=== PATIENT | female | born 1950 | race Two or more races ===

== ENCOUNTER 2024-12-31 22:25 | Emergency (ER) | payer OTHER ==
[~2024-12-31] VITALS: Ht 175.3 cm; Wt 91.6 kg
[2024-12-31] MEDS ORDERED: LOSARTAN POTASS50 MG (22:34)
[2024-12-31] MEDS ORDERED: JANUMET 50-5001 EACH (22:34)
[2024-12-31] MEDS ORDERED: LIPITOR40 M1 (22:34)
[2024-12-31] MEDS ORDERED: MECLIZINE HCL 25 MG TABLET PO ONE (22:45)
[2024-12-31] MEDS ORDERED: ONDANSETRON HCL 2 MG/ML VIAL IV ONE (22:45)
[2024-12-31 23:30] LABS: BASO % 0.3 % (0.1-1.2); EOS # 0.04 (0.04-0.54); EOS % 0.4 % (0.7-7.0); HEMATOCRIT 42.2 % (34.1-44.9); HEMOGLOBIN 14.2 g/dL (11.2-15.7); LYMPH # 1.91 (1.18-3.74); MEAN CORPUSCULAR HEMOGLOBIN 29.8 pg (25.6-32.2); MONO # 0.61 (0.24-0.82); MONO % 6.1 % (4.7-12.5); NEUT # 7.45 (1.56-6.13); PLATELET COUNT 244 K/uL (163-369); RED BLOOD COUNT 4.77 M/uL (3.93-5.22)
[2024-12-31 23:42] LABS: ALBUMIN 4.1 gm/dL (3.4-5.0); BILIRUBIN TOTAL 0.77 mg/dL (0.3-1.2); CALCIUM 9.9 mg/dL (8.5-10.1); CREATININE SERUM 0.64 mg/dL (0.55-1.02); GFR 90.96; GLOBULINA 3.5 G/DL (2.4-3.5); POTASSIUM 3.81 mEq/L (3.5-5.1); TOTAL PROTEIN 7.6 gm/dL (6.4-8.2)
[2025-01-01] MEDS ORDERED: hydrOXYzine PAMOATE 25 MG CAPSULE PO STA (00:25)
[2025-01-01] MEDS ORDERED: hydrOXYzine PAMOATE 25 MG CAPSULE PO ONE (00:35)
== END 2025-01-01 01:05 | disposition home or self-care (01) ==
LOC: ER 22:25
PROVIDERS: General Practice
DX: H81.10 Benign paroxysmal vertigo, unspecified ear (principal); I10 Essential (primary) hypertension; E11.9 Type 2 diabetes mellitus without complications; Z88.0 Allergy status to penicillin
CPT/HCPCS: 36415; 70450; 96365; 99284; J2405